=== PATIENT | male | born 1980 | race Native Hawaiian/Other Pacific Islander ===

== ENCOUNTER 2020-09-17 22:14 | Emergency (ER) | payer OTHER ==
[~2020-09-17] VITALS: Ht 182.9 cm; Wt 78.5 kg
[2020-09-17 23:16] LABS: PLATELET COUNT 234 K/uL (142-355)
[2020-09-17 23:25] LABS: POTASSIUM 4.5 mmol/L (3.6-5.2)
[2020-09-18 03:25] VITALS: BP 142/75; TEMP 98.3
== END 2020-09-18 03:25 | disposition home or self-care (01) ==
LOC: ED 22:14
PROVIDERS: Hospitalist
DX: K40.90 Unilateral inguinal hernia, without obstruction or gangrene, not specified as recurrent (principal)
CPT/HCPCS: 36415; 80053; 81000; 83690; 85027; 96360; 96365; 96375; 99284; J1170; J1885; J2405; Q9963